=== PATIENT | female | born 1980 | race African-American/Black ===

== ENCOUNTER 2024-05-03 22:25 | Emergency (ER) | payer BC ==
[2024-05-03 23:27] LABS: #Basophils 0.1 thou/uL (0.0-0.2); #Eosinphils 0.1 thou/uL (0.0-0.7); #Lymphocytes 1.7 thou/uL (1.20-3.40); #Monocytes 0.7 thou/uL (0.11-0.59); #Neutrophils 3.8 thou/uL (1.40-6.50); %Basophils 0.9 % (0.0-1.0); %Monocytes 10.3 % (0.0-10.0); %Neutrophils 59.9 % (42.0-75.0); Mean Corpuscular HGB CONC 31.4 g/dL (32.0-36.0); Mean Platelet Volume 8.4 fL (7.4-10.4); Platelet Count 261 10x3/uL (130-400); RBC Distribution Width 13.2 % (11.5-14.5); Red Blood Cell (RBC) Count 3.59 mill/uL (4.20-5.40); White Blood Cell (WBC) Count 6.4 10x3/uL (4.8-10.8)
[2024-05-03 23:38] LABS: Acetaminophen Less than 10 mcg/mL (Less than 10); Alcohol Less than 10.0 mg/dL (Less than 10); Salicylate Less than 8.0 mg/dL (Less than 8.0)
[2024-05-03 23:40] LABS: ALT (SGPT) 32 U/L (8-55); AST (SGOT) 21 U/L (5-34); Albumin 3.8 g/dL (3.5-5.0); Alkaline Phosphatase 113 U/L (40-110); Anion Gap 19 mmol/L (10-20); BUN (Urea Nitrogen) 36 mg/dL (7.0-18.7); Bilirubin, Total 0.3 mg/dL (0.2-1.2); Calc. Creatinine Clearance 0 mL/min (70-130); Calcium 9.9 mg/dL (7.8-10.44); Carbon Dioxide 26 mmol/L (22-29); Chloride 98 mmol/L (98-107); Estimated GFR 22; Globulin 6.8 g/dL (2.4-3.5); Glucose 101 mg/dL (70-105); Potassium 3.4 mmol/L (3.5-5.1); Protein, Total 10.6 g/dL (6.0-8.3); Sodium 140 mmol/L (136-145)
[2024-05-03 23:45] LABS: Troponin I Less than 0.010 ng/mL (< 0.028)
[2024-05-03 23:46] LABS: INR-International Normal Ratio 1.2
[2024-05-03 23:47] LABS: PTT 25.2 sec (22.9-36.1)
[2024-05-04 00:43] LABS: Amphetamine Not Detected (NotDetected); Barbiturates Screen Not Detected (NotDetected); Benzodiazepine Screen Detected (NotDetected); Cocaine Metabolite Screen Not Detected (NotDetected); Methadone Not Detected (NotDetected); Methamphetamine Not Detected (NotDetected); Opiate Screen Detected (NotDetected); Oxycodone Screen Not Detected (NotDetected); Phencyclidine (PCP) Not Detected (NotDetected); THC/Cannabinoid Screen Detected (NotDetected); Tricyclic Screen Detected (NotDetected)
== END 2024-05-04 03:00 | disposition home or self-care (01) ==
LOC: MADERS 22:25 → EDBD 22:25 → MADERS 05-04 03:00
DX: E86.0 Dehydration (principal); N28.9 Disorder of kidney and ureter, unspecified; B20 Human immunodeficiency virus [HIV] disease
CPT/HCPCS: 36415; 70450; 80053; 80306; 80307; 84484; 85025; 85610; 85730; 93005; 96360; 96361

== ENCOUNTER 2024-06-12 12:24 | Outpatient (CLI) | payer BC | END 2024-06-12 12:25 | disposition home or self-care (01) | LOC: MADRAD 12:24 | PROVIDERS: ATTEND Family Medicine | DX: R05.8 Other specified cough (principal) | CPT/HCPCS: 71046 ==